=== PATIENT | male | born 1970 | race Caucasian/White ===

== ENCOUNTER 2018-02-12 06:40 | Inpatient (IN) | payer OTHER ==
[~2018-02-12] VITALS: Ht 180.3 cm; Wt 75.6 kg
[2018-02-12 08:12] VITALS: BP 112/78; PULSE 68; TEMP 98.2
[2018-02-12 11:38] LABS: BASO % 0.5 % (0.0-2.0); EOS # 0.2 (0.0-0.7); EOS % 1.9 % (0-4.0); GRAN # 4.9 (1.4-6.5); GRAN % 56.5 % (42.2-75.2); HEMATOCRIT 39.9 % (42.0-52.0); HEMOGLOBIN 12.6 g/dl (13.5-18.0); LYMPH # 2.5 (1.2-3.4); MEAN CELL VOLUME 76 fl (80.0-100.0); MEAN CORPUSCULAR HEMOGLOBIN 24 pg (27.0-31.0); MEAN CORPUSCULAR HGB CONC 32 g/dl (33.0-37.0); MONO # 1.1 (0.1-0.6); MONO % 12.9 % (1.7-9.3); PLATELET COUNT 408 K/mm3 (130-400); RED BLOOD COUNT 5.25 M/mm3 (4.20-5.60); REDCELL DISTRIBUTION WIDTH-CV 18.6 % (11.5-14.5)
[2018-02-12 11:42] LABS: INR 1.1 (0.8-3.0); PROTHROMBIN TIME 13.1 SECONDS (9.7-12.8)
[2018-02-12 11:54] LABS: ALBUMIN 3.1 gm/dL (3.5-5.0); BILIRUBIN,TOTAL 0.4 mg/dL (0.0-1.0); CALCIUM 8.6 mg/dL (8.4-10.2); CREATININE, serum 0.95 mg/dL (0.66-1.25); POTASSIUM 3.9 mmol/L (3.4-5.0); TOTAL PROTEIN 6.8 gm/dL (6.4-8.2)
[2018-02-12 13:19] VITALS: BP 110/76; PULSE 66; TEMP 98.3
[2018-02-12 17:11] VITALS: BP 107/55; PULSE 66; TEMP 98.5
[2018-02-12 22:13] VITALS: BP 116/70; PULSE 71; TEMP 98.6
[2018-02-13 02:07] VITALS: BP 120/73; PULSE 76; TEMP 97.8
[2018-02-13 05:22] VITALS: BP 117/74; PULSE 86; TEMP 99
[2018-02-13 07:17] LABS: BASO % 0.5 % (0.0-2.0); EOS # 0.2 (0.0-0.7); EOS % 2.2 % (0-4.0); GRAN # 4.4 (1.4-6.5); GRAN % 60.7 % (42.2-75.2); LYMPH # 1.9 (1.2-3.4); LYMPH % 25.6 % (20.0-51.0); MEAN CELL VOLUME 78 fl (80.0-100.0); MEAN CORPUSCULAR HGB CONC 30 g/dl (33.0-37.0); MEAN PLATELET VOLUME 10.3 fl (7.4-10.4); MONO # 0.8 (0.1-0.6); MONO % 10.6 % (1.7-9.3); PLATELET COUNT 333 K/mm3 (130-400); RED BLOOD COUNT 4.59 M/mm3 (4.20-5.60); REDCELL DISTRIBUTION WIDTH-CV 18.6 % (11.5-14.5)
[2018-02-13 07:22] LABS: HEMATOCRIT 35.9 % (42.0-52.0); HEMOGLOBIN 10.8 g/dl (13.5-18.0); MEAN CORPUSCULAR HEMOGLOBIN 24 pg (27.0-31.0)
[2018-02-13 07:28] LABS: ALBUMIN 2.9 gm/dL (3.5-5.0); BILIRUBIN,TOTAL 0.5 mg/dL (0.0-1.0); CALCIUM 7.9 mg/dL (8.4-10.2); CREATININE, serum 0.93 mg/dL (0.66-1.25); POTASSIUM 4.2 mmol/L (3.4-5.0); TOTAL PROTEIN 6.3 gm/dL (6.4-8.2)
[2018-02-13 11:13] VITALS: BP 119/68; PULSE 82; TEMP 98.4
[2018-02-13 12:03] LABS: MAGNESIUM 1.8 mg/dL (1.6-2.3); PHOSPHOROUS 2.5 mg/dL (2.5-4.5)
[2018-02-13 12:10] LABS: PRE ALBUMIN 13.1 mg/dL (17.6-36.0)
[2018-02-13 13:40] VITALS: BP 105/70; PULSE 82; TEMP 98.1
[2018-02-13 18:08] VITALS: BP 123/77; PULSE 84; TEMP 98.8
[2018-02-13 21:16] VITALS: BP 111/65; PULSE 89; TEMP 99
[2018-02-14] VITALS (13 sets, daily range): BP systolic 103–118; BP diastolic 68–85; PULSE 68–89; TEMP 97.4–98.7
[2018-02-14 06:36] LABS: CALCIUM 8.3 mg/dL (8.4-10.2); CREATININE, serum 0.85 mg/dL (0.66-1.25); MAGNESIUM 2.1 mg/dL (1.6-2.3); PHOSPHOROUS 2.6 mg/dL (2.5-4.5); POTASSIUM 4.3 mmol/L (3.4-5.0)
[2018-02-15 06:18] VITALS: BP 116/75; PULSE 76; TEMP 98.8
[2018-02-15 06:43] LABS: BASO % 0.6 % (0.0-2.0); EOS # 0.2 (0.0-0.7); EOS % 3.5 % (0-4.0); GRAN # 2.6 (1.4-6.5); GRAN % 41.8 % (42.2-75.2); LYMPH # 2.5 (1.2-3.4); LYMPH % 39.3 % (20.0-51.0); MEAN CELL VOLUME 78 fl (80.0-100.0); MEAN CORPUSCULAR HGB CONC 31 g/dl (33.0-37.0); MEAN PLATELET VOLUME 9.7 fl (7.4-10.4); MONO # 0.9 (0.1-0.6); MONO % 14.3 % (1.7-9.3); PLATELET COUNT 323 K/mm3 (130-400); RED BLOOD COUNT 4.53 M/mm3 (4.20-5.60); REDCELL DISTRIBUTION WIDTH-CV 18.6 % (11.5-14.5)
[2018-02-15 06:46] LABS: HEMATOCRIT 35.3 % (42.0-52.0); HEMOGLOBIN 10.9 g/dl (13.5-18.0); MEAN CORPUSCULAR HEMOGLOBIN 24 pg (27.0-31.0)
[2018-02-15 07:00] LABS: CALCIUM 8.7 mg/dL (8.4-10.2); CREATININE, serum 0.79 mg/dL (0.66-1.25); MAGNESIUM 1.8 mg/dL (1.6-2.3); PHOSPHOROUS 3.5 mg/dL (2.5-4.5); POTASSIUM 3.9 mmol/L (3.4-5.0)
[2018-02-15] MEDS ORDERED: ZOFRAN 4MG T4 MG/TAB PO (09:37)
[2018-02-15 10:54] VITALS: BP 106/71; PULSE 78; TEMP 98.5
== END 2018-02-15 11:49 | disposition home or self-care (01) | DRG 374 ==
LOC: SURG 06:40
PROVIDERS: Family Medicine; Physician Assistant; Surgery
PROC: 02HV33Z Insertion of Infusion Device into Superior Vena Cava, Percutaneous Approach (ICD-10-PCS; 2018-02-13)
PROC: 0DBH8ZX Excision of Cecum, Via Natural or Artificial Opening Endoscopic, Diagnostic (ICD-10-PCS; principal; 2018-02-14 07:30)
DX: C18.0 Malignant neoplasm of cecum (principal); E43 Unspecified severe protein-calorie malnutrition; C78.7 Secondary malignant neoplasm of liver and intrahepatic bile duct; K56.609 Unspecified intestinal obstruction, unspecified as to partial versus complete obstruction; D64.9 Anemia, unspecified; F17.210 Nicotine dependence, cigarettes, uncomplicated; Z68.22 Body mass index [BMI] 22.0-22.9, adult
CPT/HCPCS: 99222-AI; 99232-AI; 99239; C1751; C1894; J0610; J1644; J1650; J2270; J2405; J3475; J3480; J7030; J7120; J7131

== ENCOUNTER 2018-02-21 12:51 | Inpatient (IN) | payer OTHER ==
[~2018-02-21] VITALS: Ht 175.3 cm; Wt 75.8 kg
[~2018-02-21 12:51] MED LIST: ZOFRAN 4MG T4 MG/TAB PO
[2018-02-28] VITALS (10 sets, daily range): BP systolic 103–132; BP diastolic 77–88; PULSE 67–92; TEMP 97.6–97.8
[2018-02-28 10:51] LABS: BASO # 0.1 (0.0-0.2); BASO % 0.9 % (0.0-2.0); EOS # 0.4 (0.0-0.7); EOS % 4.1 % (0-4.0); GRAN # 5.8 (1.4-6.5); HEMATOCRIT 38.2 % (42.0-52.0); LYMPH # 2.5 (1.2-3.4); LYMPH % 25.6 % (20.0-51.0); MEAN CELL VOLUME 77 fl (80.0-100.0); MEAN CORPUSCULAR HEMOGLOBIN 24 pg (27.0-31.0); MEAN CORPUSCULAR HGB CONC 31 g/dl (33.0-37.0); MEAN PLATELET VOLUME 8.6 fl (7.4-10.4); MONO # 0.9 (0.1-0.6); MONO % 8.9 % (1.7-9.3); PLATELET COUNT 454 K/mm3 (130-400); RED BLOOD COUNT 4.95 M/mm3 (4.20-5.60); REDCELL DISTRIBUTION WIDTH-CV 19.3 % (11.5-14.5)
[2018-02-28 10:52] LABS: HEMOGLOBIN 11.9 g/dl (13.5-18.0)
[2018-02-28 11:04] LABS: CALCIUM 8.9 mg/dL (8.4-10.2); CREATININE, serum 0.71 mg/dL (0.66-1.25); POTASSIUM 4.4 mmol/L (3.4-5.0)
[2018-03-01] VITALS (7 sets, daily range): BP systolic 116–137; BP diastolic 71–87; PULSE 72–92; TEMP 97.6–99.3
[2018-03-01 06:17] LABS: BASO % 0.2 % (0.0-2.0); GRAN # 9.8 (1.4-6.5); GRAN % 74.6 % (42.2-75.2); LYMPH # 2.1 (1.2-3.4); LYMPH % 16.1 % (20.0-51.0); MEAN CELL VOLUME 76 fl (80.0-100.0); MEAN CORPUSCULAR HGB CONC 32 g/dl (33.0-37.0); MEAN PLATELET VOLUME 9.1 fl (7.4-10.4); MONO # 1.1 (0.1-0.6); MONO % 8.4 % (1.7-9.3); PLATELET COUNT 481 K/mm3 (130-400); RED BLOOD COUNT 4.61 M/mm3 (4.20-5.60); REDCELL DISTRIBUTION WIDTH-CV 18.9 % (11.5-14.5)
[2018-03-01 06:25] LABS: HEMATOCRIT 35.1 % (42.0-52.0); HEMOGLOBIN 11.1 g/dl (13.5-18.0); MEAN CORPUSCULAR HEMOGLOBIN 24 pg (27.0-31.0)
[2018-03-01 06:27] LABS: ALBUMIN 3.3 gm/dL (3.5-5.0); CALCIUM 8.6 mg/dL (8.4-10.2); CREATININE, serum 0.82 mg/dL (0.66-1.25); POTASSIUM 4.3 mmol/L (3.4-5.0)
[2018-03-02 02:17] VITALS: BP 128/72; PULSE 92; TEMP 98.6
[2018-03-02 05:38] VITALS: BP 113/70; PULSE 89; TEMP 99.1
[2018-03-02 07:37] LABS: BASO # 0.1 (0.0-0.2); BASO % 0.6 % (0.0-2.0); EOS # 0.2 (0.0-0.7); EOS % 1.8 % (0-4.0); GRAN # 5.2 (1.4-6.5); GRAN % 62.3 % (42.2-75.2); LYMPH # 2.2 (1.2-3.4); LYMPH % 26.3 % (20.0-51.0); MEAN CELL VOLUME 78 fl (80.0-100.0); MEAN CORPUSCULAR HGB CONC 31 g/dl (33.0-37.0); MEAN PLATELET VOLUME 9.3 fl (7.4-10.4); MONO # 0.7 (0.1-0.6); MONO % 8.8 % (1.7-9.3); PLATELET COUNT 417 K/mm3 (130-400); RED BLOOD COUNT 4.16 M/mm3 (4.20-5.60); REDCELL DISTRIBUTION WIDTH-CV 19.3 % (11.5-14.5)
[2018-03-02 07:40] LABS: HEMATOCRIT 32.3 % (42.0-52.0); HEMOGLOBIN 10.1 g/dl (13.5-18.0); MEAN CORPUSCULAR HEMOGLOBIN 24 pg (27.0-31.0)
[2018-03-02 07:48] LABS: CALCIUM 8.6 mg/dL (8.4-10.2); CREATININE, serum 0.79 mg/dL (0.66-1.25); PHOSPHOROUS 1.9 mg/dL (2.5-4.5); POTASSIUM 3.9 mmol/L (3.4-5.0)
[2018-03-02 09:48] VITALS: BP 116/69; PULSE 90; TEMP 98.1
[2018-03-02 13:42] VITALS: BP 122/76; PULSE 97; TEMP 98.1
[2018-03-02 17:45] VITALS: BP 124/80; PULSE 94; TEMP 97.8
[2018-03-02 22:06] VITALS: BP 111/58; PULSE 91; TEMP 98.1
[2018-03-03 02:01] VITALS: BP 120/74; PULSE 94; TEMP 98
[2018-03-03 05:32] VITALS: BP 109/57; PULSE 61; TEMP 98.6
[2018-03-03 09:49] VITALS: BP 115/63; PULSE 89; TEMP 98.3
[2018-03-03 13:49] VITALS: BP 120/67; PULSE 97; TEMP 97.8
[2018-03-03 17:44] VITALS: BP 124/66; PULSE 92; TEMP 98.3
[2018-03-03 22:06] VITALS: BP 128/78; PULSE 99; TEMP 98.7
[2018-03-04 02:02] VITALS: BP 106/63; PULSE 91; TEMP 98.5
[2018-03-04 05:12] VITALS: BP 117/70; PULSE 85; TEMP 98.1
[2018-03-04] MEDS ORDERED: PERCOCET 325 MG1 TA2 PO (09:07)
[2018-03-04] MEDS ORDERED: NEURONTIN100 MG/CAP PO (09:07)
[2018-03-04] MEDS ORDERED: COLACE 100100 MG/CAP PO (09:08)
[2018-03-04] MEDS ORDERED: MOTRIN 600600 MG/TAB PO (09:08)
[2018-03-04 09:47] LABS: BASO # 0.1 (0.0-0.2); BASO % 0.6 % (0.0-2.0); EOS # 0.4 (0.0-0.7); EOS % 4.7 % (0-4.0); GRAN # 4.8 (1.4-6.5); GRAN % 59.6 % (42.2-75.2); LYMPH # 1.9 (1.2-3.4); LYMPH % 23.5 % (20.0-51.0); MEAN CELL VOLUME 77 fl (80.0-100.0); MEAN CORPUSCULAR HGB CONC 31 g/dl (33.0-37.0); MEAN PLATELET VOLUME 8.9 fl (7.4-10.4); MONO # 0.9 (0.1-0.6); PLATELET COUNT 379 K/mm3 (130-400); REDCELL DISTRIBUTION WIDTH-CV 18.6 % (11.5-14.5)
[2018-03-04 09:48] LABS: HEMATOCRIT 30.7 % (42.0-52.0); HEMOGLOBIN 9.5 g/dl (13.5-18.0); MEAN CORPUSCULAR HEMOGLOBIN 24 pg (27.0-31.0)
[2018-03-04 09:51] LABS: ALBUMIN 2.8 gm/dL (3.5-5.0); CALCIUM 9.1 mg/dL (8.4-10.2); CREATININE, serum 0.78 mg/dL (0.66-1.25); PHOSPHOROUS 4.3 mg/dL (2.5-4.5); POTASSIUM 4.4 mmol/L (3.4-5.0)
[2018-03-04 10:00] VITALS: BP 104/68; PULSE 87; TEMP 97.9
== END 2018-03-04 13:07 | disposition home or self-care (01) | DRG 330 ==
LOC: SURG 02-28 10:01 → INPTSU 02-28 10:01 → SURG 02-28 12:30
PROVIDERS: Surgery
PROC: 0DTF4ZZ Resection of Right Large Intestine, Percutaneous Endoscopic Approach (ICD-10-PCS; principal; 2018-02-28 12:30)
DX: C18.0 Malignant neoplasm of cecum (principal); C78.7 Secondary malignant neoplasm of liver and intrahepatic bile duct; F17.210 Nicotine dependence, cigarettes, uncomplicated
CPT/HCPCS: A4314; A9284; J0694; J1100; J1170; J1650; J1885; J2405; J2704; J3010; J7120

== ENCOUNTER → 2018-03-19 | Outpatient (CLI) | payer OTHER ==
[~2018-03-19] MED LIST changes: +COLACE 100100 MG/CAP PO; +MOTRIN 600600 MG/TAB PO; +NEURONTIN100 MG/CAP PO; +PERCOCET 325 MG1 TA2 PO
== END ==
LOC: COL.RAD 16:32
DX: C18.9 Malignant neoplasm of colon, unspecified (principal); K65.1 Peritoneal abscess; K76.89 Other specified diseases of liver; Z90.49 Acquired absence of other specified parts of digestive tract
CPT/HCPCS: Q9967

== ENCOUNTER → 2018-03-19 | Outpatient (CLI) | payer OTHER | LOC: ZCOL.LAB 18:26 | DX: Z01.89 Encounter for other specified special examinations (principal) ==

== ENCOUNTER 2018-03-22 16:36 | Observation (INO) | payer OTHER ==
[~2018-03-22] VITALS: Ht 180.3 cm; Wt 72.1 kg
[2018-03-22] MEDS ORDERED: BACTRIM DS 8001 TAB PO (16:43)
[2018-03-22] MEDS ORDERED: STOOL SOFTENER100 M2 PO (16:44)
[2018-03-22] MEDS ORDERED: PERCOCET 325 MG1 TA2 PO (17:10)
[2018-03-22 17:27] LABS: HEMATOCRIT 31.5 % (42.0-52.0); HEMOGLOBIN 9.6 g/dl (13.5-18.0); MEAN CELL VOLUME 76 fl (80.0-100.0); MEAN CORPUSCULAR HEMOGLOBIN 23 pg (27.0-31.0); MEAN CORPUSCULAR HGB CONC 31 g/dl (33.0-37.0); MEAN PLATELET VOLUME 8.4 fl (7.4-10.4); PLATELET COUNT 703 K/mm3 (130-400); RED BLOOD COUNT 4.17 M/mm3 (4.20-5.60); REDCELL DISTRIBUTION WIDTH-CV 17.2 % (11.5-14.5)
[2018-03-22 17:39] LABS: ALBUMIN 3.4 gm/dL (3.5-5.0); BILIRUBIN,TOTAL 0.3 mg/dL (0.0-1.0); CREATININE, serum 0.92 mg/dL (0.66-1.25); POTASSIUM 4.5 mmol/L (3.4-5.0)
[2018-03-22 17:50] LABS: C-REACTIVE PROTEIN 13.6 mg/dL (0.0-0.9)
[2018-03-22 17:54] LABS: ANISOCYTOSIS 1+; BAND 8 % (0-10); EOSINOPHIL 4 % (0-4); LYMPHOCYTE 21 % (20.0-51.0); METAMYELOCYTE 3 % (0-0); MICROCYTOSIS 1+; NEUTROPHILS 60 % (42.0-75.2); PLATELET ESTIMATE INCREASED (NORMAL)
[2018-03-22 20:41] LABS: COLLECTION METHOD CLEAN CATCH
[2018-03-22 20:47] LABS: PH 6 (5-8); SQUAMOUS EPITHELIAL None Seen /hpf; URINE APPEARANCE Clear; URINE BACTERIA None Seen /hpf; URINE BILIRUBIN Negative (NEGATIVE); URINE BLOOD Negative (NEGATIVE); URINE COLOR Yellow; URINE GLUCOSE Negative (NEGATIVE); URINE KETONE Negative (NEGATIVE); URINE LEUKOCYTE ESTERASE Negative (NEGATIVE); URINE NITRATE Negative (NEGATIVE); URINE PROTEIN(semi-quant) Negative (NEGATIVE); URINE RBC None Seen /hpf; URINE UROBILINOGEN Negative (NEGATIVE)
[2018-03-22 21:15] VITALS: BP 111/66; PULSE 65; TEMP 98.8
[2018-03-23] VITALS (7 sets, daily range): BP systolic 85–98; BP diastolic 49–60; PULSE 50–81; TEMP 97.8–98.6
[2018-03-23 12:12] LABS: MEAN CELL VOLUME 77 fl (80.0-100.0); MEAN CORPUSCULAR HGB CONC 30 g/dl (33.0-37.0); MEAN PLATELET VOLUME 8.3 fl (7.4-10.4); REDCELL DISTRIBUTION WIDTH-CV 17.1 % (11.5-14.5)
[2018-03-23] MEDS ORDERED: PERCOCET 325 MG1 TA2 PO (12:16)
[2018-03-23 12:18] LABS: HEMATOCRIT 27.6 % (42.0-52.0); HEMOGLOBIN 8.4 g/dl (13.5-18.0); MEAN CORPUSCULAR HEMOGLOBIN 23 pg (27.0-31.0); PLATELET COUNT 579 K/mm3 (130-400)
[2018-03-23 12:22] LABS: CALCIUM 8.7 mg/dL (8.4-10.2); CREATININE, serum 0.97 mg/dL (0.66-1.25); POTASSIUM 4.1 mmol/L (3.4-5.0)
[2018-03-23 13:27] LABS: BAND 16 % (0-10); EOSINOPHIL 3 % (0-4); LYMPHOCYTE 20 % (20.0-51.0); NEUTROPHILS 58 % (42.0-75.2); PLATELET ESTIMATE INCREASED (NORMAL)
[2018-03-23 13:28] LABS: ANISOCYTOSIS 1+; HYPOCHROMIA 3+; MICROCYTOSIS 1+
[2018-03-24 03:22] VITALS: BP 87/52; PULSE 77; TEMP 98.2
[2018-03-24 07:35] VITALS: BP 95/59; PULSE 79; TEMP 98.2
[2018-03-24 11:48] VITALS: BP 94/60; PULSE 57; TEMP 97.8
[2018-03-24 15:44] VITALS: BP 93/59; PULSE 84; TEMP 97.8
== END 2018-03-24 18:25 | disposition home or self-care (01) ==
LOC: COL.ER 16:36 → MEDICAL 20:39
PROVIDERS: Emergency Medicine; Surgery
DX: K52.9 Noninfective gastroenteritis and colitis, unspecified (principal); A49.02 Methicillin resistant Staphylococcus aureus infection, unspecified site; C18.9 Malignant neoplasm of colon, unspecified; E44.0 Moderate protein-calorie malnutrition; F17.210 Nicotine dependence, cigarettes, uncomplicated; Z90.49 Acquired absence of other specified parts of digestive tract
CPT/HCPCS: J1170; J2405; J2543; J3370; J7030; J7050; J7120; Q9967

== ENCOUNTER → 2018-06-05 | Outpatient (CLI) | payer OTHER ==
[~2018-06-05] MED LIST changes: +BACTRIM DS 8001 TAB PO; +STOOL SOFTENER100 M2 PO
== END ==
LOC: COL.RAD 09:30
DX: C18.0 Malignant neoplasm of cecum (principal); C78.7 Secondary malignant neoplasm of liver and intrahepatic bile duct
CPT/HCPCS: Q9967

== ENCOUNTER 2018-06-21 09:29 | Outpatient (RCR) | payer MEDICAID ==
[~2018-06-21] VITALS: Ht 180.3 cm; Wt 82.4 kg
[2018-06-21 09:54] VITALS: BP 112/82; PULSE 83; TEMP 98
== END 2018-06-21 19:00 | disposition home or self-care (01) ==
LOC: EUO 09:29
DX: Z45.2 Encounter for adjustment and management of vascular access device (principal); Z95.9 Presence of cardiac and vascular implant and graft, unspecified; C18.9 Malignant neoplasm of colon, unspecified